=== PATIENT | male | born 1995 | race Hispanic/Latino ===

== ENCOUNTER 2020-04-05 09:01 | Emergency (ER) | payer SELFPAY, OTHER ==
[2020-04-05 09:25] LABS: #Eosinphils 0.1 thou/uL (0.0-0.7); #Lymphocytes 2.1 thou/uL (1.20-3.40); #Monocytes 0.7 thou/uL (0.11-0.59); #Neutrophils 5.7 thou/uL (1.40-6.50); %Basophils 0.2 % (0.0-1.0); %Eosinophils 0.8 % (0.0-10.0); %Lymphocytes 24.8 % (21.0-51.0); %Monocytes 7.7 % (0.0-10.0); %Neutrophils 66.4 % (42.0-75.0); Hemoglobin 15.2 g/dL (14.0-18.0); Mean Corpuscular HGB CONC 33.8 g/dL (32.0-36.0); Mean Corpuscular Hemoglobin 30.9 pg (27.0-31.0); Mean Corpuscular Volume 91.3 fL (78.0-98.0); Mean Platelet Volume 7.7 fL (7.4-10.4); Platelet Count 262 thou/uL (130-400); RBC Distribution Width 11.8 % (11.5-14.5); Red Blood Cell (RBC) Count 4.91 mill/uL (4.70-6.10); White Blood Cell (WBC) Count 8.5 thou/uL (4.8-10.8)
[2020-04-05] MEDS ORDERED: Boostrix 0.5 ML VIAL ONE (09:33)
[2020-04-05 09:48] LABS: ALT (SGPT) 57 U/L (8-55); AST (SGOT) 46 U/L (5-34); Albumin 4.2 g/dL (3.5-5.0); Alkaline Phosphatase 66 U/L (40-110); Anion Gap 13 mmol/L (10-20); BUN (Urea Nitrogen) 14 mg/dL (8.9-20.6); Bilirubin, Total 0.8 mg/dL (0.2-1.2); Calc. Creatinine Clearance 0 mL/min (70-130); Calcium 8.7 mg/dL (7.8-10.44); Carbon Dioxide 25 mmol/L (22-29); Chloride 103 mmol/L (98-107); Estimated GFR-MDRD Greater than 90; Globulin 3.2 g/dL (2.4-3.5); Glucose 105 mg/dL (70-105); Lipase 15 U/L (8-78); Potassium 3.6 mmol/L (3.5-5.1); Protein, Total 7.4 g/dL (6.0-8.3); Sodium 137 mmol/L (136-145)
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
[2020-04-05] MEDS ORDERED: Iopamidol-370 76% 500 ML 1 ML ONE (13:35)
== END 2020-04-05 10:30 | disposition home or self-care (01) ==
LOC: ERS 09:01
DX: S51.811A Laceration without foreign body of right forearm, initial encounter (principal); S30.1XXA Contusion of abdominal wall, initial encounter; S70.211A Abrasion, right hip, initial encounter; M54.5 Low back pain; V89.2XXA Person injured in unspecified motor-vehicle accident, traffic, initial encounter
CPT/HCPCS: 36415; 70450; 71260; 72125; 74177; 80053; 80307; 83690; 85025; 90471; 90715; Q9967